=== PATIENT | male | born 2000 | race Caucasian/White ===

== ENCOUNTER 2021-09-26 11:19 | Emergency (ER) | payer MEDICAID ==
[~2021-09-26] VITALS: Ht 160 cm; Wt 59.0 kg
[2021-09-26] MEDS ORDERED: IBUPROFEN 600MG TABLET PO STA (11:49)
[2021-09-26] MEDS ORDERED: ACETAMINOPHEN 325MG TABLET PO STA (11:49)
[2021-09-26 12:15] LABS: CHLORIDE 108 mEq/L (98-107)
[2021-09-26 12:19] LABS: BASOPHILS % 0.2 % (0.0-2.0); EOSINOPHILS % 11.7 % (0.0-5.0); HEMATOCRIT. 44.7 % (42.0-52.0); HEMOGLOBIN. 15.8 g/dL (14.0-18.0); LYMPHOCYTES % 18.5 % (20.0-50.0); MEAN CORPUSCULAR HEMOGLOBIN 30.3 pg (28.0-32.0); MEAN CORPUSCULAR VOLUME 85.8 fL (80.0-94.0); MEAN PLATELET VOLUME 7.9 fl (7.4-10.4); MONOCYTES % 5.7 % (2.0-8.0); NEUTROPHILS % 63.9 % (40.0-76.0); PLATELET 286 x1000/uL (130-400); RED BLOOD CELL COUNT 5.21 mill/uL (4.7-6.1); RED CELL DISTRIBUTION WIDTH 12.8 % (11.6-14.6)
[2021-09-26] MEDS ORDERED: IOHEXOL-300 100 ML BOTTLE ONE (15:21)
[2021-09-26] MEDS ORDERED: AMOX-424 MT (16:25)
[2021-09-26] MEDS ORDERED: IBUP-2029 MT (16:25)
[2021-09-26 16:49] VITALS: BP 107/65
== END 2021-09-26 16:52 | disposition home or self-care (01) ==
LOC: ER 11:19
DX: K11.5 Sialolithiasis (principal)
CPT/HCPCS: 36415; 70491; 80053; 85025; 87070; 87430; 99285; Q9967